=== PATIENT | male | born 1985 | race American Indian/Alaskan Native ===

== ENCOUNTER 2020-05-06 13:57 | Emergency (ER) | payer SELFPAY ==
[2020-05-06] MEDS ORDERED: HYDROmorphone 1 MG/1 ML INJ ONE (15:00)
[2020-05-06] MEDS ORDERED: HYDROmorphone 1 MG/1 ML INJ IV ONE ×2 (15:08→16:03)
--- NOTE | 2020-05-06 15:10 | Emergency Department Report ---
ED General Adult HPI - General Chief complaint: Multiple Trauma Stated complaint: FELL OUT OF TREE/RT NECK AND SHOULDER PUI?: No Time Seen by Provider: 05/06/20 14:55 Source: patient, RN notes reviewed, old records reviewed Mode of arrival: Ambulatory Limitations: Physical Limitation - History of Present Illness Initial comments: The patient was evaluated in the emergency department for symptoms described in the history of present illness. He/she was evaluated in the context of the global COVID-19 pandemic, which necessitated consideration that the patient might be at risk for infection with the virus that causes COVID-19. Institutional protocols and algorithms that pertain to the evaluation of patients at risk for COVID-19 are in a state of rapid change based on information released by regulatory bodies including the CDC and federal and state organizations. These policies and algorithms were followed during the p [facility]'s care in the emergency department. Please note that these policies, procedures and recommendations changed on a rapid basis. The patient is a 35-year-old gentleman, who is right-hand dominant who is not known to myself previously. The patient states he was in his usual state of health today, when he was coming out of a tree, taking down a deer stand, when he missed his footing, and accidentally fell approximately 10 feet. He did not hit his head directly, but he landed on his right shoulder, and believes that he may have twisted his neck. He has no severe headache, no midline neck pain, no chest pain, no abdominal pain, no shortness of breath, no weakness/numbness. He has sharp throbbing aching right sided shoulder pain, and right-sided trapezius pain. He has no other injuries. And no other complaints. On primary survey: Airway: Patent and intact Breath sounds: Clear to auscultation bilaterally. Circulation: 2+ pulses noted in the bilateral upper and lower extremities, blood pressure acceptable. Disability: GCS 15. There is midline cervical spine tenderness. There is no midline cervical spine step-off. Exposure: No obvious penetrating injuries. Secondary survey unremarkable. Patient has reproducible right-sided shoulder tenderness, and reproducible right sided trapezius tenderness. Patient states that after falling, he ambulated to a car, where a family member drove him here. -: Sudden, hour(s) Location: eyes, right, upper extremity Radiation: non-radiation Quality: aching Consistency: constant Improves with: rest Worsens with: movement Associated Symptoms: denies other symptoms - Related Data Previous Rx's Medication Instructions Recorded Last Taken Type Acetaminophen [Non-Aspirin Extra 500 mg PO Q6HR PRN #30 tablet 05/06/20 Unknown Rx Strength] Ibuprofen [Motrin] 600 mg PO Q8H PRN #30 tablet 05/06/20 Unknown Rx Morphine Sulfate [Morphine Sulfate 7.5 mg PO Q6HR PRN #10 tablet 05/06/20 Unknown Rx IR] Allergies Allergy/AdvReac Type Severity Reaction Status Date / Time Penicillins Allergy Rash Verified 05/06/20 14:26 ED Review of Systems ROS: Stated complaint: FELL OUT OF TREE/RT NECK AND SHOULDER Other details as noted in HPI Comment: All other systems reviewed and negative Musculoskeletal: arthralgia, myalgia ED Past Medical Hx - Past Medical History Previous Medical History?: No - Surgical History Past Surgical History?: No - Medications Home Medications: Home Medications Medication Instructions Recorded Confirmed Last Taken Type Acetaminophen [Non-Aspirin Extra 500 mg PO Q6HR PRN #30 tablet 05/06/20 Unknown Rx Strength] Ibuprofen [Motrin] 600 mg PO Q8H PRN #30 tablet 05/06/20 Unknown Rx Morphine Sulfate [Morphine Sulfate 7.5 mg PO Q6HR PRN #10 tablet 05/06/20 Unknown Rx IR] ED Physical Exam - General Limitations: Physical Limitation General appearance: alert, anxious - Head Head exam: Present: atraumatic, normocephalic - Eye Eye exam: Present: normal appearance, PERRL, EOMI. Absent: nystagmus - ENT ENT exam: Present: normal exam, normal orophraynx, mucous membranes moist, normal external ear exam - Neck Neck exam: Present: normal inspection, tenderness, other (Patient is cervical collar. There is midline cervical spine tenderness, at approximately C5. There is no midline spinal step-off. There is right-sided trapezius tenderness.). Absent: meningismus - Respiratory Respiratory exam: Present: normal lung sounds bilaterally. Absent: respiratory distress, wheezes, rales, rhonchi, stridor, decreased breath sounds - Cardiovascular Cardiovascular Exam: Present: regular rate, normal rhythm, normal heart sounds. Absent: bradycardia, tachycardia, irregular rhythm, systolic murmur, diastolic murmur, rubs, gallop - GI/Abdominal GI/Abdominal exam: Present: soft, normal bowel sounds. Absent: distended, tenderness, guarding, rebound, rigid, pulsatile mass - Rectal Rectal exam: Present: normal inspection, normal rectal tone, other (Chaperoned by nurse Caitlyn Haque) - exam: Present: normal inspection External exam: Present: normal external exam, other (Chaperoned by nurse Caitlyn Haque) - Extremities Exam Extremities exam: Present: normal inspection, tenderness (There is point tenderness to the right proximal shoulder. Otherwise, there is full range of motion to the left upper extremity, bilateral lower extremities, sensation is intact to light touch in the bilateral upper and lower extremities.), normal capillary refill, other (There is no lung bony tenderness. The pelvis is stable. The muscular compartments are soft.) - Back Exam Back exam: Present: normal inspection, full ROM, paraspinal tenderness. Absent: tenderness, CVA tenderness (R) - Neurological Exam Neurological exam: Present: alert, oriented X3, other (No facial droop. Tongue midline. Extraocular movements intact bilaterally. Facial sensation intact to light touch in V1, V2, V3 distribution bilaterally. 5 and a 5 strength in 4 extremities. Sensation intact to light touch in 4 extremities.). Absent: motor sensory deficit - Psychiatric Psychiatric exam: Present: anxious - Skin Skin exam: Present: warm, dry, intact, normal color. Absent: rash ED Course Vital Signs 05/06/20 14:28 Temperature 98 F Pulse Rate 113 H Respiratory 20 Rate Blood Pressure 152/104 [Right] O2 Sat by Pulse 98 Oximetry - Reevaluation(s) Reevaluation #1: 05/06/20 15:30 Differential diagnosis, including the not limited to: Closed head injury, paraspinal muscular injury, cervical sprain/strain, shoulder contusion, fracture, dislocation Assessment and plan: 35-year-old gentleman status post mechanical fall. GCS of 15, and clinically sober. Protecting his airway. No obvious penetrating injuries. Treat his pain. Obtain CT scan of the brain and cervical spine. Obtain x-ray of the right shoulder and right chest. Placed on cardiac cath lab technologist, make nothing by mouth. Reassess after initial data points. Have discussed this plan of care with the patient, verbalizes understanding, he is amenable to this plan of care. Reevaluation #2: 05/06/20 17:19 Patient is reassessed. Feels much improved. Tachycardia resolved. On repeat examination, has no midline cervical spine pain, tenderness or step-offs. Range of motion intact in the neck. Cervical collar is therefore cleared and discontinued. He still has reproducible trapezius tenderness. X-ray of the chest, and right upper extremity show no fracture or dislocation. Patient states he is reliable to be discharged to follow-up with an outpatient primary care doctor or orthopedist. Discussed rest, ice, compression, elevation, sling as needed, he will need close follow-up with outpatient primary care and/or orthopedics. ED Medical Decision Making - Lab Data Vital Signs 05/06/20 14:28 Temperature 98 F Pulse Rate 113 H Respiratory 20 Rate Blood Pressure 152/104 [Right] O2 Sat by Pulse 98 Oximetry - Radiology Data Radiology results: pending, report reviewed, image reviewed Print Report Referring Physician: CONCHA PRUITT Patient Name: FREDDIE DOW Date of : 1985 Sex: Male Report Date: 2020-05-06 Report Status: Finalized Findings [address] [address] XRay Report Signed Patient: FREDDIE DOW MR#: [id number] : 1985 Acct:[id number] Age/Sex: 35 / M ADM Date: 05/06/20 Loc: ED Attending Dr: Ordering Physician: CONCHA PRUITT MD Date of Service: 05/06/20 Procedure(s): XR shoulder 2+V RT Accession Number(s): [id number] cc: CONCHA PRUITT MD Fluoro Time In Minutes: RIGHT SHOULDER 3 VIEWS INDICATION / CLINICAL INFORMATION: MAIN. Trauma COMPARISON: None available. FINDINGS: AP views in internal and external rotation show no fracture or dislocation. Clavicle and scapula appear unremarkable. Signer Name: Homero Oleary MD Signed: 05/06/2020 4:37 PM Workstation Name: [id number] Transcribed By: TM Dictated By: Homero Oleary MD Electronically Authenticated By: Homero Oleary MD Signed Date/Time: 05/06/20 1637 DD/ 1636 Print Report Referring Physician: CONCHA PRUITT Patient Name: FREDDIE DOW Date of : 1985 Sex: Male Report Date: 2020-05-06 Report Status: Finalized Findings [address] [address] XRay Report Signed Patient: FREDDIE DOW MR#: [id number] : 1985 Acct:[id number] Age/Sex: 35 / M ADM Date: 05/06/20 Loc: ED Attending Dr: Ordering Physician: CONCHA PRUITT MD Date of Service: 05/06/20 Procedure(s): XR chest 1V ap Accession Number(s): [id number] cc: CONCHA PRUITT MD Fluoro Time In Minutes: CHEST 1 VIEW 05/06/2020 3:30 PM INDICATION / CLINICAL INFORMATION: Fall from a 10 foot height with right shoulder pain. COMPARISON: None available. FINDINGS: SUPPORT DEVICES: None. HEART / MEDIASTINUM: No significant abnormality. LUNGS / PLEURA: No significant pulmonary or pleural abnormality. No pneumothorax. ADDITIONAL FINDINGS: No significant additional findings. IMPRESSION: 1. No acute findings. Signer Name: Loyd Sibley MD Sign ed: 05/06/2020 4:37 PM Workstation Name: [id number] Transcribed By: SS Dictated By: Loyd Sibley MD Electronically Authenticated By: Loyd Sibley MD Signed Date/Time: 05/06/20 163 DD/ 163 TD/TT: Print Report Referring Physician: CONCHA PRUITT Patient Name: FREDDIE DOW Date of : 1985 Sex: Male Report Date: 2020-05-06 Report Status: Finalized Findings [address] [address] Cat Scan Report Signed Patient: FREDDIE DOW MR#: [id number] : 1985 Acct:[id number] Age/Sex: 35 / M ADM Date: 05/06/20 Loc: ED Attending Dr: Ordering Physician: CONCHA PRUITT MD Date of Service: 05/06/20 Procedure(s): CT head/brain wo con Accession Number(s): [id number] cc: CONCHA PRUITT MD CT BRAIN: 05/06/2020 INDICATION / CLINICAL INFORMATION: fall closed head ijury. COMPARISON: None available. FINDINGS: BRAIN/INTRACRANIAL STRUCTURES: Unenhanced CT images of the brain demonstrate no evidence of acute intracranial abnormality. Ventricles and sulci are normal in size and shape. There is no evidence of hemorrhage or mass. There are no abnormal extra-axial fluid collections. EXTRACRANIAL STRUCTURES: Unremarkable. IMPRESSION: No acute abnorm ality. All CT scans at this location are performed using dose reduction to ALARA by means of automated exposure control. Signer Name: Triston Connor MD Signed: 05/06/2020 3:39 PM Workstation Name: [id number] Transcribed By: AO Dictated By: Triston Connor MD Electronically Authenticated By: Triston Connor MD Signed Date/Time: 05/06/201538 DD/ 37 Print Report Referring Physician: CONCHA PRUITT Patient Name: FREDDIE DOW Date of : 1985 Sex: Male Report Date: 2020-05-06 Report Status: Finalized Findings [address] [address] Cat Scan Report Signed Patient: FREDDIE DOW MR#: [id number] : 1985 Acct:[id number] Age/Sex: 35 / M ADM Date: 05/06/20 Loc: ED Attending Dr: Ordering Physician: CONCHA PRUITT MD Date of Service: 05/06/20 Procedure(s): CT cervical spine wo con Accession Number(s): [id number] cc: CONCHA PRUITT MD CT CERVICAL SPINE: 05/06/2020 INDICATION / CLINICAL INFORMATION: fall closed head ijury. COMPARISON: None available. FINDINGS: CT images of the cervical spine were obtained. Images are evaluated in the axial, coronal, and sagittal planes. There is no evidence of acute abnormality. Vertebral body height is well pr eserved. Some minimal degenerative anterolisthesis is noted at the C2-3 level. Vertebral body alignment is otherwise unremarkable. CRANIOCERVICAL JUNCTION: Unremarkable. PARASPINAL STRUCTURES: Unremarkable IMPRESSION: No acute abnormality. All CT scans at this location are performed using dose reduction to ALARA by means of automated exposure control. Signer Name: Triston Connor MD Signed: 05/06/2020 3:44 PM Workstation Name: [email or web address] Transcribed By: AO Dictated By: Triston Connor MD Electronically Authenticated By: Triston Connor MD Signed Date/Time: 05/06/201543 DD/ 41 TD/TT: Critical care attestation.: If time is entered above; I have spent that time in minutes in the direct care of this critically ill patient, excluding procedure time. ED Disposition Clinical Impression: Fall, Neck pain, Right shoulder pain Disposition: DC-01 TO HOME OR SELFCARE Is pt being admited?: No Does the pt Need Aspirin: No Condition: Stable Instructions: Shoulder Pain, Cervical Strain and Sprain Rehab-SportsMed Additional Instructions: As we discussed, pain typically gets worse before it gets better after mechanical fall. Rest, avoid heavy lifting, and strenuous physical activities. Use the right upper extremity for activities of daily living as tolerated, and avoid heavy lifting, and strenuous repetitive physical activity. Do not use the right upper extremity for work-related activities until cleared to do so by her primary care doctor or orthopedist. Recommend follow-up with a primary care doctor or orthopedist within the next week. For the patient's convenience, local primary care physician, and local orthopedic groups have been listed for his convenience to follow-up with. Patient may alternate ice packs, heat packs, compression, and elevation of the affected joints, and may take [id number] Tylenol and/or ibuprofen as needed for pain, or take the prescribed acetaminophen and/or Motrin, as directed, as needed for pain. Patient may take the prescribed morphine sulfate as needed for breakthrough pain. Pain typically gets worse before gets better after mechanical fall. Minimize/avoid consumption of alcohol and sedating substances while taking the pain medications. Please return to the emergency room right away with new pain, worsened pain, migration of pain, projectile vomiting, change in mental status, confusion, inability to tolerate liquid feeds, new, worsened or different symptoms not present on the initial emergency room evaluation. Referrals: KENISHA LÓPEZ MD [Staff Physician] - 3-5 Days GARCÍA BLUM MD [Staff Physician] - 3-5 Days [facility] [Provider Group] - 3-5 Days Forms: Work/School Release Form(ED)
--- NOTE | 2020-05-06 15:44 | Cat Scan Report ---
CT BRAIN: 05/06/2020 INDICATION / CLINICAL INFORMATION: fall closed head ijury. COMPARISON: None available. FINDINGS: BRAIN/INTRACRANIAL STRUCTURES: Unenhanced CT images of the brain demonstrate no evidence of acute int racranial abnormality. Ventricles and sulci are normal in size and shape. There is no evidence of hemorrhage or mass. There are no abnormal extra-axial fluid collections. EXTRACRANIAL STRUCTURES: Unremarkable. IMPRESSION: No acute abnormality. All CT scans at this location are performed using dose reduction to ALARA by means of automated expos ure control. Signer Name: Triston Connor MD Signed: 05/06/2020 3:39 PM Workstation Name: [id number]
--- NOTE | 2020-05-06 15:49 | Cat Scan Report ---
CT CERVICAL SPINE: 05/06/2020 INDICATION / CLINICAL INFORMATION: fall closed head ijury. COMPARISON: None available. FINDINGS: CT images of the cervical spine were obtained. Images are evaluated in the axial, coronal, and sagitt al planes. There is no evidence of acute abnormality. Vertebral body height is well preserved. Some minimal degenerative anterolisthesis is noted at the C2 -3 level. Vertebral body alignment is otherwise unremarkable. CRANIOCERVICAL JUNCTION: Unremarkable. PARASPINAL STRUCTURES: Unremarkable IMPRESSION: No acute abnormality. All CT scans at this location are performed using dose reduction to ALARA by means of automated expos ure control. Signer Name: Triston Connor MD Signed: 05/06/2020 3:44 PM Workstation Name: [email or web address]
--- NOTE | 2020-05-06 16:41 | XRay Report ---
CHEST 1 VIEW 05/06/2020 3:30 PM INDICATION / CLINICAL INFORMATION: Fall from a 10 foot height with right shoulder pain. COMPARISON: None available. FINDINGS: SUPPORT DEVICES: None. HEART / MEDIASTINUM: No significant abnormality. LUNGS / PLEURA: No significant pulmonary or pleural abnormality. No pneumothorax. ADDITIONAL FINDINGS: No significant additional findings. IMPRESSION: 1. No acute findings. Signer Name: Loyd Sibley MD Signed: 05/06/2020 4:37 PM Workstation Name: [id number]
--- NOTE | 2020-05-06 16:42 | XRay Report ---
RIGHT SHOULDER 3 VIEWS INDICATION / CLINICAL INFORMATION: MAIN. Trauma COMPARISON: None available. FINDINGS: AP views in internal and external rotation show no fracture or dislocation. Clavicle and scapula appe ar unremarkable. Signer Name: Homero Oleary MD Signed: 05/06/2020 4:37 PM Workstation Name: [id number]
[2020-05-06] MEDS ORDERED: KETOROLAC 30 MG/1 ML INJ IV ONE (16:48)
[2020-05-06] MEDS ORDERED: ACETAMINOPHEN 325 MG TAB PO ONE (16:49)
[2020-05-06 17:20] VITALS: BP 138/97
== END 2020-05-06 18:20 | disposition home or self-care (01) ==
LOC: EDSEX → ED 13:57
DX: M54.2 Cervicalgia (principal); M25.511 Pain in right shoulder; Z79.899 Other long term (current) drug therapy; Z88.0 Allergy status to penicillin; W14.XXXA Fall from tree, initial encounter; Y93.89 Activity, other specified; Y92.89 Other specified places as the place of occurrence of the external cause; Y99.8 Other external cause status
CPT/HCPCS: 70450; 71045; 72125; 73030; 96374; 96375; 96376; 99285; J1170; J1885

== ENCOUNTER 2020-05-07 17:40 | Emergency (ER) | payer SELFPAY ==
[2020-05-07 17:53] VITALS: BP 143/95
[2020-05-07] MEDS ORDERED: traMADol 50 MG TAB PO ONE (20:24)
[2020-05-07] MEDS ORDERED: ONDANSETRON 4 MG ODT TAB PO ONE (20:24)
--- NOTE | 2020-05-07 20:49 | Emergency Department Report ---
Upper Extremity - HPI Chief Complaint: Allergic Reaction Stated Complaint: MEDICATION ALLERGY Upper Extremity: Right Shoulder (Pain, recent fall, unable to tolerate strong narcotic pain medication) Occurred When: 2 Days Mechanism: Fall, Crush, Other (fell off a 12-ft deer stand) Severity: severe Symptoms: Yes Pain with Movement, Yes Limited Range of Movement (due to pain), No Deformity, No Numbness, No Weakness, No Swelling, No Bruising/Ecchymosis, No Laceration or Abrasion Other History: Patient is a 35-year-old white male with no past medical history who presents to the ED with worsening right shoulder pain and nausea and vomiting for the last 2 days. Patient states that he was initially evaluated in this ED for a fall of a 12 ft deer stand 2 days ago and sustained severe right shoulder injury with a suspected right rotator cuff injury or tear. Patient states that he was discharged from this ED with a prescription of ibuprofen, Tylenol and morphine 7.5 mg but states that he has not been able to tolerate the morphine because of intractable nausea and vomiting. Patient states that he is unable to perform any active range of motion of the right shoulder and that the pain in the right shoulder is getting worse. Patient states that he has an appointment with his orthopedic surgeon in [facility] in the next 3 days and would like a different pain medication. Patient states that he has previously tolerated Ultram for pain when he had a fracture. Patient denies dizziness, syncope, chest pain, shortness of breath, neck pain, change in vision, headache, numbness and tingling or weakness of upper and lower extremities bilaterally or loss of consciousness and seizures. ED Review of Systems ROS: Stated complaint: MEDICATION ALLERGY Other details as noted in HPI Constitutional: denies: chills, fever Eyes: denies: eye pain, eye discharge, vision change ENT: denies: ear pain, throat pain Respiratory: denies: cough, shortness of breath, wheezing Cardiovascular: denies: chest pain, palpitations Endocrine: no symptoms reported Gastrointestinal: nausea, vomiting. denies: abdominal pain, diarrhea Genitourinary: denies: urgency, dysuria Musculoskeletal: arthralgia (Right shoulder pain). denies: back pain, joint swelling Skin: denies: rash, lesions Neurological: denies: headache, weakness, paresthesias Psychiatric: denies: anxiety, depression Hematological/Lymphatic: denies: easy bleeding, easy bruising ED Past Medical Hx - Past Medical History Previous Medical History?: No - Surgical History Past Surgical History?: No - Social History Smoking Status: Never Smoker Substance Use Type: None - Medications Home Medications: Home Medications Medication Instructions Recorded Confirmed Last Taken Type Acetaminophen [Non-Aspirin Extra 500 mg PO Q6HR PRN #30 tablet 05/06/20 Unknown Rx Strength] Ibuprofen [Motrin] 600 mg PO Q8H PRN #30 tablet 05/06/20 Unknown Rx Morphine Sulfate [Morphine Sulfate 7.5 mg PO Q6HR PRN #10 tablet 05/06/20 Unknown Rx IR] Ondansetron [Zofran Odt] 4 mg PO Q8HR #20 tab.rapdis 05/07/20 Unknown Rx traMADoL [Ultram] 50 mg PO Q6HR PRN #15 tablet 05/07/20 Unknown Rx Upper Extremity Exam - Exam General: Vital signs noted. No distress. Alert and acting appropriately. Head and Torso: No HEENT Abnormality, No Neck Tenderness, No Chest/Lungs Abnormality, No Abdominal Tenderness, No Back Tenderness Shoulder Exam: Yes Shoulder Tenderness (Right shoulder), Yes Clavicle Tenderness (Palpable right lateral clavicular tenderness), Yes AC Joint Tenderness (Palpable right AC tenderness), No Normal Range of Motion in Shoulder (Limited range of motion due to pain of right shoulder), No Shoulder Deformity Arm Exam: No Arm/Humerus Tenderness, No Arm Deformity Elbow: Yes Normal Range of Motion in Elbow, No Elbow Tenderness, No Elbow Deformity Forearm: No Forearm Tenderness, No Forearm Deformity, No Pain with Pronation, No Pain with Supination Wrist: Yes Normal ROM in Wrist, No Wrist Tenderness, No Wrist Deformity, No Snuffbox Tenderness, No Pain with Axial Thumb Compression Hand: Yes Normal ROM in Digit(s), No Hand Tenderness, No Hand Deformity, No Digit Tenderness, No Digit(s) Deformity, No Tendon Dysfunction CMS Exam: No Broken Skin, No Normal Distal Pulses, No Normal Capillary Refill, No Normal Distal Sensation ED Course Vital Signs 05/07/20 17:52 Temperature 97.8 F Pulse Rate 92 H Respiratory 18 Rate Blood Pressure 143/95 O2 Sat by Pulse 97 Oximetry ED Medical Decision Making - Medical Decision Making This is a 35-year-old white male with no past medical history who presents to the ED with worsening right shoulder pain and nausea and vomiting for the last 2 days. Patient states that he was initially evaluated in this ED for a fall of a 12 ft deer stand 2 days ago and sustained severe right shoulder injury with a suspected right rotator cuff injury or tear. Patient states that he was discharged from this ED with a prescription of ibuprofen, Tylenol and morphine 7.5 mg but states that he has not been able to tolerate the morphine because of intractable nausea and vomiting. Patient states that he is unable to perform any active range of motion of the right shoulder and that the pain in the right shoulder is getting worse. Patient states that he has an appointment with his orthopedic surgeon in [facility] in the next 3 days and would like a different pain medication. Patient states that he has previously tolerated Ultram for pain when he had a fracture. In the ED, patient is alert and oriented x3 and is not in distress. Patient was treated for pain in the ED with Ultram and also given antiemetics. On reevaluation, patient's pain is well controlled medication. Patient was discharged home on a new prescription of Ultram and additional antiemetic prescriptions Zofran. Patient was advised to follow-up with his orthopedic surgeon as scheduled in 3 days time in [facility]. Patient was advised return to the ED immediately if symptoms get worse. - Differential Diagnosis Shoulder fracture; Rotator cuff tear; Shoulder sprain; Muscle strain Critical care attestation.: If time is entered above; I have spent that time in minutes in the direct care of this critically ill patient, excluding procedure time. ED Disposition Clinical Impression: Sprain of right shoulder Qualifiers: Encounter type: subsequent encounter Shoulder sprain type: rotator cuff capsule Qualified Code(s): S43.421D - Sprain of right rotator cuff capsule, subsequent encounter Disposition: DC-01 TO HOME OR SELFCARE Is pt being admited?: No Does the pt Need Aspirin: No Condition: Stable Instructions: Shoulder Sprain, Acromioclavicular Separation Additional Instructions: Take medication with food, drink plenty of fluids and follow-up with your orthopedic surgeon as scheduled in [place], [place]. Alternatively if you are staying around in [place], follow-up with Dr. Morley on the orthopedic surgeon as advised. Return to the ED immediately if symptoms get worse. Prescriptions: traMADoL [Ultram] 50 mg PO Q6HR PRN #15 tablet PRN Reason: Pain Ondansetron [Zofran Odt] 4 mg PO Q8HR #20 tab.rapdis Referrals: GARCÍA MORLEY MD [Staff Physician] - 3-5 Days Time of Disposition: 20:51 Print Language: TAJIK
== END 2020-05-07 21:10 | disposition home or self-care (01) ==
LOC: ED 17:40
DX: S43.401A Unspecified sprain of right shoulder joint, initial encounter (principal); Z79.899 Other long term (current) drug therapy; Z88.0 Allergy status to penicillin; X58.XXXA Exposure to other specified factors, initial encounter; Y93.89 Activity, other specified; Y92.89 Other specified places as the place of occurrence of the external cause; Y99.8 Other external cause status
CPT/HCPCS: 99282; Q0162

== ENCOUNTER 2020-05-15 15:41 | Emergency (ER) | payer SELFPAY ==
[2020-05-15 15:50] VITALS: BP 130/97
--- NOTE | 2020-05-15 15:50 | Emergency Department Report ---
Stated Complaint: LT SHOULDER PAIN - HPI History of Present Illness: This is a 35-year-old male nontoxic, well nourished in appearance, no acute signs of distress presents to the ED with c/o of chronic left shoulder pain status post fall 05/05/2020. PAtient was seen here. Given Tramadol and stated has orthopedic follow-up appointment on 05/19/2020. Patient denies any new trauma or injuries. Stated has some decreased ROM but denies any joint swelling, redness, or abnormal gait. Denies any fever, chills, nausea, vomiting, headache, stiff neck, chest pain or shortness of breath. Patient denies any numbness or tingling. - Exam Physical Exam: Left shoulder pain and tenderness. Otherwise normal physical exam. Neurovascular intact. Cap <2. MSE screening note: Focused history and physical exam performed. Due to findings the following was ordered: ED Medical Decision Making - Medical Decision Making I will refill patients medication for pain due to orthopedic appointment in 3 days. Patient has left shoulder sling. Patient was instructed to Follow-up with a orthopedic doctor in 3-5 days or if symptoms worsen and continue return to emergency room as soon as possible. At time of discharge, the patient does not seem toxic or ill in appearance. No acute signs of distress noted. Patient agrees to discharge treatment plan of care. No further questions noted by the patient. ED Disposition for MSE Clinical Impression: Left shoulder strain Qualifiers: Encounter type: initial encounter Qualified Code(s): S46.912A - Strain of unspecified muscle, fascia and tendon at shoulder and upper arm level, left arm, initial encounter Disposition: TO HOME OR SELFCARE Is pt being admited?: No Does the pt Need Aspirin: No Condition: Stable Instructions: Tramadol tablets Additional Instructions: Follow-up with a orthopedic doctor in 3-5 days or if symptoms worsen and continue return to emergency room as soon as possible. Prescriptions: RX: traMADoL [Ultram 50 MG tab] 50 mg PO Q6HR PRN #12 tablet PRN Reason: Pain Referrals: PRIMARY CARE, [Referring] - 3-5 Days GARCÍA BLUM MD [Staff Physician] - 3-5 Days Time of Disposition: 15:51
== END 2020-05-15 16:00 | disposition home or self-care (01) ==
LOC: ED 15:41
DX: S46.912A Strain of unspecified muscle, fascia and tendon at shoulder and upper arm level, left arm, initial encounter (principal); W19.XXXA Unspecified fall, initial encounter; Y93.89 Activity, other specified; Y92.89 Other specified places as the place of occurrence of the external cause; Y99.8 Other external cause status
CPT/HCPCS: 99282

== ENCOUNTER 2020-05-19 07:53 | Emergency (ER) | payer SELFPAY ==
[2020-05-19 08:00] VITALS: BP 151/94
== END 2020-05-19 10:26 | disposition left against medical advice (07) ==
LOC: ED 07:53
DX: M25.512 Pain in left shoulder (principal); Z53.21 Procedure and treatment not carried out due to patient leaving prior to being seen by health care provider

== ENCOUNTER 2020-06-16 00:09 | Emergency (ER) | payer SELFPAY ==
[2020-06-16 00:15] VITALS: BP 143/117
--- NOTE | 2020-06-16 00:20 | Emergency Department Report ---
Blank Doc - Documentation Documentation: 35-year-old male that presents with right testicular pain with hematuria after a blunt force trauma from a fall. Patient denies any pelvic or abdominal pain. 1- This initial assessment/diagnostic orders/clinical plan/ treatment(s) is/are subject to change based on pt's health status, clinical progression and re- assessment by fellow clinical providers in the ED. Further treatment and workup at subsequent clinical provers discretion. Patient/guardians urged not to elope from ED as their condition may be serious if not clinically assessed and managed. 2-labs 3-UA 4-Doppler ultrasound
[2020-06-16 01:01] LABS: Bilirubin,Urine NEG (Negative); Blood,Urine LG (Negative); Color,Urine Red (Yellow); Urobilinogen,Urine < 2.0 mg/dL (<2.0)
[2020-06-16] MEDS ORDERED: HYDROcodone/ACETAMINOPHEN 10-325MG TAB PO ONE (01:05)
[2020-06-16 01:18] LABS: RBC,Urine > 182.0 /HPF (0.0-6.0); WBC,Urine > 182.0 /HPF (0.0-6.0)
[2020-06-16 02:11] LABS: Alanine Aminotransferase 11 units/L (7-56); Albumin 4.7 g/dL (3.9-5); BUN/Creatinine Ratio 13; Blood Urea Nitrogen 10 mg/dL (9-20); Calcium 9.1 mg/dL (8.4-10.2); Hemolysis Index 17
--- NOTE | 2020-06-16 02:46 | Ultrasound Report ---
Scrotal ultrasound INDICATION: Fall, inguinal pain FINDINGS: Testicles appear intact. No testicular masses are seen. Good flow is seen in both testicles . Bilateral mild diffuse microlithiasis is noted which is unlikely to be significant. No epididymal a bnormalities are seen. Minimal left and small right hydroceles are noted without complexity. IMPRESSION: No acute abnormalities are seen Signer Name: Azam Rivera MD Signed: 06/16/2020 2:42 AM Workstation Name: [id number]
[2020-06-16 02:47] LABS: Basophils % (Auto) 0.6 % (0.0-1.8); Eosinophils % (Auto) 0.5 % (0.0-4.3); Hematocrit 41.8 % (35.5-45.6); Lymphocytes # (Auto) 1.8 K/mm3 (1.2-5.4); Lymphocytes % (Auto) 28.9 % (13.4-35.0); Mean Corpuscular HGB Conc 34 % (32-34); Mean Corpuscular Volume 90 fl (84-94); Monocytes # (Auto) 0.5 K/mm3 (0.0-0.8); Monocytes % (Auto) 8.2 % (0.0-7.3); Platelet Count 186 K/mm3 (140-440); Red Blood Count 4.65 M/mm3 (3.65-5.03); Red Cell Distribution Width 14.9 % (13.2-15.2)
[2020-06-16] MEDS ORDERED: SODIUM CHLORIDE 0.9% 1000 ML 1,000 ML IV ONE (05:32)
[2020-06-16] MEDS ORDERED: MORPHINE 4 MG/1 ML INJ IV ONE (05:32)
[2020-06-16] MEDS ORDERED: MORPHINE 4 MG/1 ML INJ IM ONE (05:35)
[2020-06-16] MEDS ORDERED: ONDANSETRON 4 MG/2 ML INJ ONE (05:48)
[2020-06-16] MEDS ORDERED: SODIUM CHLORIDE 0.9% 1000 ML 0 ML ONE (05:48)
[2020-06-16] MEDS ORDERED: ONDANSETRON 4 MG/2 ML INJ IV NR (06:00)
== END 2020-06-16 10:28 ==
LOC: ED 00:09
DX: R10.30 Lower abdominal pain, unspecified (principal); Z53.21 Procedure and treatment not carried out due to patient leaving prior to being seen by health care provider
CPT/HCPCS: 36415; 80053; 81001; 85025; 93975; J2270; J2405; J7030

== ENCOUNTER 2020-06-22 14:01 | Emergency (ER) | payer SELFPAY ==
[2020-06-22] MEDS ORDERED: oxyCODONE /ACETAMINOPHEN 5-325MG TAB PO ONE (16:59)
--- NOTE | 2020-06-22 17:01 | Event Note ---
ED Screening Note Date of service: 06/22/20 Time: 16:59 ED Screening Note: 35-year-old male presents to the ER today complaining of right groin, testicular pain and hematuria about 1 week ago. Patient states that he and of straddling one of the post of the handrail, striking his right groin area. He reports swelling to the area as well as the testicle but no bruising. He states that he came here on the which was when the incident happened but due to wait he left. An ultrasound of his testicle was done at the time, did not show any acute abnormalities. Patient states that he still continues to have pain in the right groin and his testicles and he still continues to have hematuria. He denies any bleeding from his penis or any open wounds. Denies any other symptoms This initial assessment/diagnostic orders/clinical plan/treatment(s) is/are subject to change based on patients health status, clinical progression and re- assessment by fellow clinical providers in the ED. Further treatment and workup at subsequent clinical providers discretion. Patient/guardian urged not to elope from the ED as their condition may be serious if not clinically assessed and managed. Initial orders include: CT abdomen pelvis, CBC, CMP and UA.
[2020-06-22 17:02] LABS: Bilirubin,Urine NEG (Negative); Blood,Urine LG (Negative); Color,Urine Red (Yellow); Urobilinogen,Urine < 2.0 mg/dL (<2.0)
[2020-06-22 17:03] LABS: RBC,Urine > 182.0 /HPF (0.0-6.0)
--- NOTE | 2020-06-22 17:42 | Cat Scan Report ---
CT abdomen pelvis wo con INDICATION: MAIN. TECHNIQUE: All CT scans at this location are performed using CT dose reduction for ALARA by means of automated e xposure control. COMPARISON: None available. FINDINGS: Lung bases are clear of acute disease. Liver, gallbladder, spleen, pancreas, kidneys and adrenals shell ear negative on this noncontrast exam. Abdominal aorta is normal in size. No adenopathy. Pelvis Considerable postop change in bowel in the right and mid lower abdomen, with what appears to be right hemicolectomy and anastomosis.. There is relatively dense fecal material throughout the distal colon and rectum. No free fluid or inflammation. No appreciable abnormality of the inguinal canals or superior scrotum. No skeletal lesions. IMPRESSION: 1. No acute abnormality. Signer Name: Homero Oleary MD Signed: 06/22/2020 5:38 PM Workstation Name: [id number]
[2020-06-22 19:39] LABS: Basophils % (Auto) 0.5 % (0.0-1.8); Eosinophils % (Auto) 0.3 % (0.0-4.3); Hematocrit 49.3 % (35.5-45.6); Hemoglobin 16.9 gm/dl (11.8-15.2); Lymphocytes # (Auto) 2.4 K/mm3 (1.2-5.4); Lymphocytes % (Auto) 29.7 % (13.4-35.0); Mean Corpuscular HGB Conc 34 % (32-34); Mean Corpuscular Volume 89 fl (84-94); Monocytes # (Auto) 0.5 K/mm3 (0.0-0.8); Monocytes % (Auto) 6.2 % (0.0-7.3); Platelet Count 283 K/mm3 (140-440); Red Blood Count 5.57 M/mm3 (3.65-5.03); Red Cell Distribution Width 14.8 % (13.2-15.2)
[2020-06-22 20:03] LABS: Alanine Aminotransferase 9 units/L (7-56); Albumin 5.3 g/dL (3.9-5); BUN/Creatinine Ratio 12; Blood Urea Nitrogen 11 mg/dL (9-20); Calcium 9.9 mg/dL (8.4-10.2); Hemolysis Index 46
[2020-06-22] MEDS ORDERED: ONDANSETRON 4 MG/2 ML INJ IM ONE (20:49)
[2020-06-22] MEDS ORDERED: KETOROLAC 60 MG/2 ML INJ IM ONE (20:49)
[2020-06-22] MEDS ORDERED: fentaNYL 100 MCG/2 ML INJ IM ONE (20:49)
--- NOTE | 2020-06-22 20:49 | Emergency Department Report ---
HPI - General Chief Complaint: Urogenital-Male Time Seen by Provider: 06/22/20 16:58 - HPI HPI: Room 42 The patient is a 35-year-old male present with a chief complaint of groin pain. The patient states his symptoms began 7 days ago after falling down approximately 8 stairs when he landed at the bottom he states his leg straddled the banister post striking him in the groin. The patient states since then he has had blood in his urine and discomfort/pressure with urinating. Patient complains of right testicle pain. The patient came to the hospital the same day as the injury and had a CT scan and ultrasound performed but he left prior to being evaluated by physician secondary to long wait times. The patient states he returned to the emergency department today because he continues to have pain and still notices blood in his urine. Patient denies any history of fever nausea or vomiting. ED Past Medical Hx - Past Medical History Previous Medical History?: No - Surgical History Additional Surgical History: HERNIA/ LEFT KNEE - Family History Family history: no significant - Social History Smoking Status: Never Smoker (Chews tobacco) Substance Use Type: None (Denies illicit drug use), Alcohol (Occasional) - Medications Home Medications: Home Medications Medication Instructions Recorded Confirmed Last Taken Type Acetaminophen [Non-Aspirin Extra 500 mg PO Q6HR PRN #30 tablet 05/06/20 Unknown Rx Strength] Ibuprofen [Motrin] 600 mg PO Q8H PRN #30 tablet 05/06/20 Unknown Rx Morphine Sulfate [Morphine Sulfate 7.5 mg PO Q6HR PRN #10 tablet 05/06/20 Unknown Rx IR] Ondansetron [Zofran Odt] 4 mg PO Q8HR #20 tab.rapdis 05/07/20 Unknown Rx traMADoL [Ultram] 50 mg PO Q6HR PRN #15 tablet 05/07/20 Unknown Rx traMADoL [Ultram 50 MG tab] 50 mg PO Q6HR PRN #12 tablet 05/15/20 Unknown Rx Ciprofloxacin HCl [Ciprofloxacin 500 mg PO Q12HR #20 tab 06/22/20 Unknown Rx TAB] HYDROcodone/APAP 5-325 [[place] 1 - 2 each PO Q6HR PRN #14 tablet 06/22/20 U nknown Rx 5/325] Ibuprofen [Motrin 800 MG tab] 800 mg PO Q8HR PRN #20 tablet 06/22/20 Unknown Rx Phenazopyridine [Pyridium] 200 mg PO TID #6 tab 06/22/20 Unknown Rx ED Review of Systems ROS: Stated complaint: GROIN PAIN/URINATING BLOOD Other details as noted in HPI Constitutional: denies: fever Eyes: denies: eye pain ENT: denies: throat pain Respiratory: no symptoms reported Cardiovascular: denies: chest pain Endocrine: no symptoms reported Gastrointestinal: denies: nausea, vomiting Genitourinary: dysuria, hematuria, testicular pain Musculoskeletal: denies: back pain Neurological: denies: headache Physical Exam - Physical Exam Vital Signs: Vital Signs 06/22/20 06/22/20 14:06 18:35 Temperature 97.7 F Pulse Rate 122 H Respiratory 20 18 Rate Blood Pressure 115/79 O2 Sat by Pulse 98 Oximetry Vital Signs 06/22/20 06/22/20 06/22/20 14:06 18:35 21:08 Temperature 97.7 F 98.3 F Pulse Rate 122 H 86 Respiratory 20 18 18 Rate Blood Pressure 115/79 117/84 O2 Sat by Pulse 98 98 Oximetry Physical Exam: GENERAL: The patient is well-developed well-nourished male lying on stretcher not appearing to be in acute distress. [] HEENT: Normocephalic. Atraumatic. Extraocular motions are intact. Patient has moist mucous membranes. NECK: Supple. Trachea midline CHEST/LUNGS: There is no respiratory distress noted. ABDOMEN: There is no abdominal distention. SKIN: There is no rash. There is no edema. There is no diaphoresis. NEURO: The patient is awake, alert, and oriented. The patient is cooperative. The patient has normal speech MUSCULOSKELETAL: There is no evidence of acute injury. GENITOURINARY: Cremasteric reflexes present bilaterally. There is no perineal ecchymosis appreciated. No lacerations appreciated. ED Course Vital Signs 06/22/20 06/22/20 14:06 18:35 Temperature 97.7 F Pulse Rate 122 H Respiratory 20 18 Rate Blood Pressure 115/79 O2 Sat by Pulse 98 Oximetry ED Medical Decision Making - Lab Data Result diagrams: 06/22/20 19:23 06/22/20 19:23 Laboratory Tests 06/22/20 06/22/20 06/22/20 19:23 19:23 Unknown WBC 8.0 RBC 5.57 H Hgb 16.9 H Hct 49.3 H MCV 89 MCH 30 MCHC 34 RDW 14.8 Plt Count 283 Lymph % (Auto) 29.7 [place] % (Auto) 6.2 Eos % (Auto) 0.3 Baso % (Auto) 0.5 Lymph # (Auto) 2.4 [place] # (Auto) 0.5 Eos # (Auto) 0.0 Baso # (Auto) 0.0 Seg Neutrophils % 63.3 Seg Neutrophils # 5.1 Sodium 137 Potassium 4.2 Chloride 100.9 Carbon Dioxide 21 L Anion Gap 19 BUN 11 Creatinine 0.9 Estimated GFR > 60 BUN/Creatinine Ratio 12 Glucose 112 H Calcium 9.9 Total Bilirubin 0.40 AST 18 ALT 9 Alkaline Phosphatase 88 Total Protein 8.3 H Albumin 5.3 H Albumin/Globulin Ratio 1.8 Urine Color Red Urine Turbidity Slightly-cloudy Urine pH 6.0 Ur Specific [place] 1.010 Urine Protein 30 mg/dl Urine Glucose (UA) Neg Urine Ketones Neg Urine Blood Lg Urine Nitrite Neg Urine Bilirubin Neg Urine Urobilinogen < 2.0 Ur Leukocyte Esterase Neg Urine WBC (Auto) 55.0 H Urine RBC (Auto) > 182.0 - Radiology Data Radiology results: report reviewed (Testicular ultrasound from 06/16/2020, CT abdomen pelvis), image reviewed (Testicular ultrasound from 06/16/2020, CT abdomen pelvis) Findings [address] [address] Ultrasound Report Signed Patient: FREDDIE DOW MR#: [id number] : 1985 Acct:[id number] Age/Sex: 35 / M ADM Date: 06/16/20 Loc: ED Attending Dr: Ordering Physician: VIDYA BEJARANO NP Date of Service: 06/16/20 Procedure(s): US testicular doppler comp Accession Number(s): [id number] cc: VIDYA BEJARANO NP Scrotal ultrasound INDICATION: Fall, inguinal pain FINDINGS: Testicles appear intact. No testicular masses are seen. Good flow is seen in both testicles. Bilateral mild diffuse microlithiasis is noted which is unlikely to be significant. No epididymal abnormalities are seen. Minimal left and small right hydroceles are noted without complexity. IMPRESSION: No acute abnormalities are seen Signer Name: Azam Rivera MD Signed: 06/16/2020 2:42 AM Workstation Name: [id number] Transcribed By: GJ Dictated By: Azam Rivera MD Electronically Authenticated By: Azam Rivera MD Signed Date/Time: 06/16/20241 DD/ 0 TD/TT: Findings [facility] [address] [id number] Cat Scan Report Signed Patient: FREDDIE DOW MR#: [id number] : 1985 Acct:[id number] Age/Sex: 35 / M ADM Date: 06/22/20 Loc: ED Attending Dr: Ordering Physician: EVERETTE GUAMAN Date of Service: 06/22/20 Procedure(s): CT abdomen pelvis wo con Accession Number(s): [id number] cc: EVERETTE GUAMAN CT abdomen pelvis wo con INDICATION: MAIN. TECHNIQUE: All CT scans at this location are performed using CT dose reduction for ALARA by means of automated exposure control. COMPARISON: None available. FINDINGS: Lung bases are clear of acute disease. Liver, gallbladder, spleen, pancreas, kidneys and adrenals appear negative on this noncontrast exam. Abdominal aorta is normal in size. No adenopathy. Pelvis Considerable postop change in bowel in the right and mid lower abdomen, with what appears to be right hemicolectomy and anastomosis.. There is relatively dense fecal material throughout the distal colon and rectum. No free fluid or inflammation. No appreciable abnormality of the inguinal canals or superior scrotum. No skeletal lesions. IMPRESSION: 1. No acute abnormality. Signer Name: Homero Oleary MD Signed: 06/22/2020 5:38 PM Workstation Name: [id number] Transcribed By: TM Dictated By: Homero Oleary MD Elect ronically Authenticated By: Homero Oleary MD Signed Date/Time: 06/22/201737 DD/ 31 TD/TT: - Differential Diagnosis Testicular contusion, cystitis, UTI, Critical care attestation.: If time is entered above; I have spent that time in minutes in the direct care of this critically ill patient, excluding procedure time. ED Disposition Clinical Impression: Contusion of testicle, Hematuria, UTI (urinary tract infection) Disposition: DC-01 TO HOME OR SELFCARE Is pt being admited?: No Does the pt Need Aspirin: No Condition: Stable Instructions: Urinary Tract Infection, Adult Additional Instructions: Return to the emergency department should you develop worsening symptoms, inability to tolerate food or liquids, high fever or any other concerns Prescriptions: Ciprofloxacin HCl [Ciprofloxacin TAB] 500 mg PO Q12HR #20 tab Ibuprofen [Motrin 800 MG tab] 800 mg PO Q8HR PRN #20 tablet PRN Reason: Pain, Moderate (4-6) HYDROcodone/APAP 5-325 [[place] 5/325] 1 - 2 each PO Q6HR PRN #14 tablet PRN Reason: Pain Phenazopyridine [Pyridium] 200 mg PO TID #6 tab Referrals: BRIAN BROWN MD [Staff Physician] - 3-5 Days (Dr Brown is a urologist. Please follow-up with him for further evaluation) Time of Disposition: 21:13
[2020-06-22 21:10] VITALS: BP 117/84
[2020-06-22] MEDS ORDERED: ONDANSETRON 4 MG/2 ML INJ IV ONE (21:25)
[2020-06-22] MEDS ORDERED: KETOROLAC 30 MG/1 ML INJ IV ONE (21:25)
[2020-06-22] MEDS ORDERED: fentaNYL 100 MCG/2 ML INJ IV ONE (21:25)
== END 2020-06-22 22:19 | disposition home or self-care (01) ==
LOC: ED 14:01
DX: S30.22XA Contusion of scrotum and testes, initial encounter (principal); R31.9 Hematuria, unspecified; N39.0 Urinary tract infection, site not specified; Z79.1 Long term (current) use of non-steroidal anti-inflammatories (NSAID); Z79.899 Other long term (current) drug therapy; Z88.0 Allergy status to penicillin; Z88.6 Allergy status to analgesic agent; W10.9XXA Fall (on) (from) unspecified stairs and steps, initial encounter; Y93.89 Activity, other specified; Y92.89 Other specified places as the place of occurrence of the external cause; Y99.8 Other external cause status
CPT/HCPCS: 36415; 74176; 80053; 81001; 85025; 87086; 96374; 96375; 99284; J1885; J2405; J3010

== ENCOUNTER 2020-06-23 10:18 | Emergency (ER) | payer SELFPAY ==
[2020-06-23 10:46] VITALS: BP 136/85
--- NOTE | 2020-06-23 11:08 | Emergency Department Report ---
ED Rash HPI - HPI Chief Complaint: Skin Rash Stated Complaint: ALLERGIC REACTION TO MEDS Time Seen by Provider: 06/23/20 10:44 Duration: 1 Day Location: Upper Extremities, Lower Extremities Suspected Cause: Medication Rash Symptoms: No Itching, No Facial Swelling, No Tongue/Oral Swelling, No Breathing Difficulties, No Choking Sensation, No Wheezing/Dyspnea, No Peeling, No Blistering, No Fever, No Lightheaded, No Malaise, No Myalgias Severity: mild Other History: This is a 35-year-old male nontoxic, well nourished in appearance, no acute signs of distress presents to the ED with c/o of generalized rash that started yesterday but has resolved today. Patient stated the symptoms started after he was prescribed hydrocodone. Patient stated he did not take any other medication besides hydrocodone for pain. Patient is requesting for tramadol refills for pain rather than the hydrocodone due to allergic reaction. Patient currently stated symptoms has resolved and subsided. Patient denies any drooling, hoarseness or facial swelling. Patient denies any trauma. She denies any fever, chills, nausea, vomiting, chest pain, shortness of breath, headache, stiff neck, numbness or tingling. Patient states allergies to penicillin. Patient denies any significant past medical history. Denies any current rash. ED Review of Systems ROS: Stated complaint: ALLERGIC REACTION TO MEDS Other details as noted in HPI Comment: All other systems reviewed and negative Constitutional: denies: chills, fever Eyes: denies: eye pain, eye discharge, vision change ENT: denies: ear pain, throat pain Respiratory: denies: cough, shortness of breath, wheezing Cardiovascular: denies: chest pain, palpitations Endocrine: no symptoms reported Gastrointestinal: denies: abdominal pain, nausea, diarrhea Genitourinary: denies: urgency, dysuria Musculoskeletal: denies: back pain, joint swelling, arthralgia Skin: denies: rash, lesions, change in color, change in hair/nails, pruritus Neurological: denies: headache, weakness, paresthesias Psychiatric: denies: anxiety, depression Hematological/Lymphatic: denies: easy bleeding, easy bruising ED Past Medical Hx - Past Medical History Previous Medical History?: No - Surgical History Past Surgical History?: Yes Additional Surgical History: HERNIA/ LEFT KNEE - Social History Smoking Status: Never Smoker Substance Use Type: None - Medications Home Medications: Home Medications Medication Instructions Recorded Confirmed Last Taken Type Acetaminophen [Non-Aspirin Extra 500 mg PO Q6HR PRN #30 tablet 05/06/20 Unknown Rx Strength] Ibuprofen [Motrin] 600 mg PO Q8H PRN #30 tablet 05/06/20 Unknown Rx Morphine Sulfate [Morphine Sulfate 7.5 mg PO Q6HR PRN #10 tablet 05/06/20 Unknown Rx IR] Ondansetron [Zofran Odt] 4 mg PO Q8HR #20 tab.rapdis 05/07/20 Unknown Rx traMADoL [Ultram] 50 mg PO Q6HR PRN #15 tablet 05/07/20 Unknown Rx traMADoL [Ultram 50 MG tab] 50 mg PO Q6HR PRN #12 tablet 05/15/20 Unknown Rx Ciprofloxacin HCl [Ciprofloxacin 500 mg PO Q12HR #20 tab 06/22/20 Unknown Rx TAB] HYDROcodone/APAP 5-325 [[place] 1 - 2 each PO Q6HR PRN #14 tablet 06/22/20 Unknown Rx 5/325] Ibuprofen [Motrin 800 MG tab] 800 mg PO Q8HR PRN #20 tablet 06/22/20 Unknown Rx Phenazopyridine [Pyridium] 200 mg PO TID #6 tab 06/22/20 Unknown Rx Rash Exam - Exam General: Vital signs noted. No distress. Alert and acting appropriately. HEENT: No Periorbital Edema, No Conjuctival Injection, No Chemosis, No Perioral Edema, No Tongue Edema, No Uvular Edema, No Compromised Airway, No Drooling Lungs: Yes Good Air Exchange (Normal Breath Sounds), No Wheezes, No Ronchi, No Stridor, No Cough, No Labored Respirations, No Retractions, No Use of Accessory Muscles, No Other Abnormal Lung Sounds Heart: Yes Regular, No Murmur Skin: No Urticarial Rash, No Maculopapular Rash, No Morbilliform rash, No Bulla(e), No Excoriations, No Weeping, No Tenderness, No Erythema, No Edema, No Encrustations, No Other Other: Positive: Abdomen Normal, Neurologic Normal, Musculoskeletal Normal ED Course Vital Signs 06/23/20 10:43 Temperature 97.4 F L Pulse Rate 91 H Respiratory 16 Rate Blood Pressure 136/85 O2 Sat by Pulse 100 Oximetry - Reevaluation(s) Reevaluation #1: 06/23/20 11:08 Patient is speaking in full sentences with no signs of distress noted. ED Medical Decision Making - Medical Decision Making This is a 35-year-old male that presents with allergic reaction from hydrocodone. Currently patient does not have any allergic reaction as he stated is resolved. Patient is stable was examined by me. There is no facial swelling. No angioedema. There is no cellulitis. No hoarseness. Patient's medical history has been reviewed and it looks like patient has been in the ER for refills of tramadol several times. Karina [employer] shows that did not fill his hydrocodone. Due to this I will not be able to refill patient's tramadol as it is a controlled substance and patient does have a urologist follow-up appointment. Patient was instructed that he could take medication that was prescribed besides hydrocodone due to allergic reaction. Patient was referred to Follow-up with a urologist doctor in 3-5 days or if symptoms worsen and continue return to emergency room as soon as possible. At time of discharge, the patient does not seem toxic or ill in appearance. No acute signs of distress noted. Patient agrees to discharge treatment plan of care. No further questions noted by the patient. Critical care attestation.: If time is entered above; I have spent that time in minutes in the direct care of this critically ill patient, excluding procedure time. ED Disposition Clinical Impression: Allergic reaction Disposition: - MED SCREENING EXAM-LEFT Is pt being admited?: No Does the pt Need Aspirin: No Condition: Stable Additional Instructions: Follow-up with a urologist doctor in 3-5 days or if symptoms worsen and continue return to emergency room as soon as possible. Stop taking hydrocodone as you stated it caused allergic reaction. You could take other medication that was prescribed to you during your visit yesterday for pain. Referrals: RAY BONNER MD [Primary Care Provider] - 3-5 Days DUYEN BILL MD [Staff Physician] - 3-5 Days Time of Disposition: 11:11
== END 2020-06-23 11:06 | disposition left against medical advice (07) ==
LOC: ED 10:18
DX: T78.40XA Allergy, unspecified, initial encounter (principal); Z53.21 Procedure and treatment not carried out due to patient leaving prior to being seen by health care provider

== ENCOUNTER 2020-06-24 02:50 | Emergency (ER) | payer SELFPAY ==
[2020-06-24] MEDS ORDERED: predniSONE 50 MG TAB PO STA (04:17)
--- NOTE | 2020-06-24 04:26 | Emergency Department Report ---
ED Allergic Reaction HPI - General Chief complaint: Allergic Reaction Stated complaint: REACTION TO MEDICATION Time Seen by Provider: 06/24/20 03:55 Source: patient Mode of arrival: Ambulatory Limitations: No Limitations - History of Present Illness Initial Comments: 35-year-old male presents emerged department complaining of continued groin pain which was sustained after a reported blunt force trauma was sliding down a banister rail striking the protuberance at the end resulting in pain and throbbing swelling states he is due to follow-up with the urologist in a few days for further evaluation and treatment options. He was reportedly provided with hydrocodone at the time of his discharge a few days ago and reports taking the medication as prescribed but then beginning to develop a rash/allergic reaction for which she was initially seen but this morning and states that the symptoms continue more importantly he requests for Ultram to be provided to him several times during this visit as well. Symptoms: itching Severity: mild Treatment Prior to Arrival: none Previous Allergy History: none (Recently found out allergy of hydrocodone) - Related Data Previous Rx's Medication Instructions Recorded Last Taken Type Acetaminophen [Non-Aspirin Extra 500 mg PO Q6HR PRN #30 tablet 05/06/20 Unknown Rx Strength] Ibuprofen [Motrin] 600 mg PO Q8H PRN #30 tablet 05/06/20 Unknown Rx Morphine Sulfate [Morphine Sulfate 7.5 mg PO Q6HR PRN #10 tablet 05/06/20 Unknown Rx IR] Ondansetron [Zofran Odt] 4 mg PO Q8HR #20 tab.rapdis 05/07/20 Unknown Rx traMADoL [Ultram] 50 mg PO Q6HR PRN #15 tablet 05/07/20 Unknown Rx traMADoL [Ultram 50 MG tab] 50 mg PO Q6HR PRN #12 tablet 05/15/20 Unknown Rx Ciprofloxacin HCl [Ciprofloxacin 500 mg PO Q12HR #20 tab 06/22/20 Unknown Rx TAB] HYDROcodone/APAP 5-325 [[place] 1 - 2 each PO Q6HR PRN #14 tablet 06/22/20 Unknown Rx 5/325] Ibuprofen [Motrin 800 MG tab] 800 mg PO Q8HR PRN #20 tablet 06/22/20 Unknown Rx Phenazopyridine [Pyridium] 200 mg PO TID #6 tab 06/22/20 Unknown Rx hydrOXYzine HCL [Atarax] 25 mg PO Q6HR PRN #20 tablet 06/24/20 Unknown Rx predniSONE [Deltasone] 50 mg PO QDAY #5 tab 06/24/20 Unknown Rx Allergies Allergy/AdvReac Type Severity Reaction Status Date / Time hydrocodone Allergy Rash Verified 06/24/20 02:59 Penicillins Allergy Rash Verified 06/22/20 14:04 ED Review of Systems ROS: Stated complaint: REACTION TO MEDICATION Other details as noted in HPI Comment: All other systems reviewed and negative ED Past Medical Hx - Past Medical History Previous Medical History?: No - Surgical History Past Surgical History?: Yes Additional Surgical History: HERNIA/ LEFT KNEE - Social History Smoking Status: Never Smoker Substance Use Type: None - Medications Home Medications: Home Medications Medication Instructions Recorded Confirmed Last Taken Type Acetaminophen [Non-Aspirin Extra 500 mg PO Q6HR PRN #30 tablet 05/06/20 Unknown Rx Strength] Ibuprofen [Motrin] 600 mg PO Q8H PRN #30 tablet 05/06/20 Unknown Rx Morphine Sulfate [Morphine Sulfate 7.5 mg PO Q6HR PRN #10 tablet 05/06/20 Unknown Rx IR] Ondansetron [Zofran Odt] 4 mg PO Q8HR #20 tab.rapdis 05/07/20 Unknown Rx traMADoL [Ultram] 50 mg PO Q6HR PRN #15 tablet 05/07/20 Unknown Rx traMADoL [Ultram 50 MG tab] 50 mg PO Q6HR PRN #12 tablet 05/15/20 Unknown Rx Ciprofloxacin HCl [Ciprofloxacin 500 mg PO Q12HR #20 tab 06/22/20 Unknown Rx TAB] HYDROcodone/APAP 5-325 [[place] 1 - 2 each PO Q6HR PRN #14 tablet 06/22/20 Unknown Rx 5/325] Ibuprofen [Motrin 800 MG tab] 800 mg PO Q8HR PRN #20 tablet 06/22/20 Unknown Rx Phenazopyridine [Pyridium] 200 mg PO TID #6 tab 06/22/20 Unknown Rx hydrOXYzine HCL [Atarax] 25 mg PO Q6HR PRN #20 tablet 06/24/20 Unknown Rx predniSONE [Deltasone] 50 mg PO QDAY #5 tab 06/24/20 Unknown Rx ED Physical Exam - General Limitations: No Limitations General appearance: alert, in no apparent distress - Head Head exam: Present: atraumatic, normocephalic - Eye Eye exam: Present: normal appearance, PERRL, EOMI Pupils: Present: normal accommodation - ENT ENT exam: Present: mucous membranes moist - Neck Neck exam: Present: normal inspection - Respiratory Respiratory exam: Present: normal lung sounds bilaterally. Absent: respiratory distress - Cardiovascular Cardiovascular Exam: Present: regular rate, normal rhythm. Absent: systolic murmur, diastolic murmur, rubs, gallop - GI/Abdominal GI/Abdominal exam: Present: soft, normal bowel sounds - Rectal Rectal exam: Present: deferred - Extremities Exam Extremities exam: Present: normal inspection - Back Exam Back exam: Present: normal inspection - Neurological Exam Neurological exam: Present: alert, oriented X3 - Psychiatric Psychiatric exam: Present: normal affect, normal mood - Skin Skin exam: Present: warm, dry, intact, erythema (Erythema to the right knee but no hives located them seems to be more from nail trauma or local irritation). Absent: rash ED Medical Decision Making - Medical Decision Making 35-year-old male presents for reporting continued allergic reaction but no evidence that he is taking the medication that was prescribed earlier. States he is having a reaction to hydrocodone although I cannot find him in the drug database have not filled this in his medication in any of the participating states currently has redness to his leg but no hives no wheezing and appears to be speaking in full sentences. Very concerned with receiving ultrasound and other medications during this ER visit. Patient was seen very concerned with an abdomen that he received prescriptions for Ultram. After reviewing his visits in the emergency department starting in May 06, 2021 is he received multiple narcotic prescriptions however none could be verified with the [place] prescription or awareness program. He is he is reluctant to say where he is having his prescriptions filled since that time he received morphine, Percocet, hydrocodone and Ultram. Seems to have no issue when being treated with these medications while in the emergency department the allergies only occur when he is at home per Mr. Keys. At this present visit advised him that no further narcotic prescriptions will be provided he is utilize anti-inflammatories and follow-up with the associate is specialist which he was informed to do so and to maintain his current appointment for that visit. Surprisingly during his visit once he receives his pain pill he states that his allergic reaction mysteriously stopped and he refused the other medications associated with the allergy. Critical care attestation.: If time is entered above; I have spent that time in minutes in the direct care of this critically ill patient, excluding procedure time. ED Disposition Clinical Impression: Allergic reaction Disposition: - TO HOME OR SELFCARE Is pt being admited?: No Does the pt Need Aspirin: No Condition: Stable Instructions: Allergies, Adult, [id number] Prescriptions: hydrOXYzine HCL [Atarax] 25 mg PO Q6HR PRN #20 tablet PRN Reason: Itching predniSONE [Deltasone] 50 mg PO QDAY #5 tab Referrals: PRIMARY CARE, [Primary Care Provider] - 3-5 Days KENISHA LÓPEZ MD [Staff Physician] - 3-5 Days
== END 2020-06-24 05:48 | disposition home or self-care (01) ==
LOC: ED 02:50
DX: T78.40XA Allergy, unspecified, initial encounter (principal); Z79.899 Other long term (current) drug therapy; Z88.0 Allergy status to penicillin; Z88.6 Allergy status to analgesic agent
CPT/HCPCS: 99282; J7512